=== PATIENT | female | born 1955 | race Caucasian/White ===

== ENCOUNTER 2020-10-01 15:51 | Emergency (ER) | payer MEDICARE, SELFPAY ==
--- NOTE | 2020-10-01 16:03 | ED.FEMALEGU ---
HPI - Female Genitourinary General Chief complaint: Urogenital-Female Stated complaint: Bloody urine Source: patient and RN notes reviewed Limitations: no limitations History of Present Illness HPI Narrative: The patient, previously mostly healthy non-smoker/nondrinker, presents with urinary symptoms. Patient states she has 1/2-week history of urinary frequency, urgency and dysuria for which she took Azo. Symptoms are mild, worse with micturition similar to prior UTI several years ago. No fever, vomiting/diarrhea, vaginal discharge, abdominal pain, back pain, appendectomy scar pain but she did see some blood. Patient is not vaccinated for Covid and had a Covid test in July at the time of polypectomy and appendectomy; no loss of taste/smell, S OB, cough, CP, nor rash. Related Data Allergies Allergy/AdvReac Type Severity Reaction Status Date / Time Penicillins Allergy Unknown unknown Verified 05/22/18 10:20 risedronate sodium Allergy Unknown Nausea Verified 05/22/18 10:20 sertraline Allergy Unknown drowsy, Verified 05/22/18 10:20 didn't help trazodone Allergy Unknown drowsiness, Verified 05/22/18 10:20 ineffective PROPOXYPHENE HCL Allergy Unknown NAUSEA AND Uncoded 08/17/10 14:03 VOMITING Review of Systems Review of Systems: Narrative: The patient has been informed that they may have pre-hypertension or Hypertension based on a BP reading in the department. I recommend that the patient call the primary care provider listed on their discharge instructions or a physician of their choice this week to arrange follow up for further evaluation of possible pre-hypertension or Hypertension General/Constitutional: No weight loss,fever Eyes: N0: Redness,discharge Ears/Nose/Throat: No: Epistaxis,ear discharge Respiratory: Denies: Hemoptysis Gastrointestinal: No Vomiting, Bleeding-rectal Skin: No Lumps, eruption Neurologic: No Focal Weakness,Sz Hematologic: Denies: Petechiae/Purpura Psychiatric: No: Suicida ideationl All Other Systems: Reviewed and Negative [facility] Surgical History Surgical History (Updated 08/21/20 @ 20:56 by Luiza Oreilly MD) History of appendectomy 08.16.2020 appendectomy 08.16.2020 path: cecal tubular adenoma Social History Social History Smoking status: Never smoker Alcohol intake: current Comments At time of signature, agree with nursing past medical, surgical, social and family history. There is no relevant family history pertinent to the presenting complaint Exam Narrative: Exam Narrative: General Appearance: Well appearing, No distress EYE: PERRLA, Conjunctiva clear Ears: External ear normal Nose: Normal nose Mouth/Throat: Normal appearing, Normal lips Neck: Supple Respiratory: Airway patent, No respiratory distress Cardiovascular: RRR Abdomen: Soft, Non-tender, Musculoskeletal: Full ROM Skin: Warm, Dry Neurological: A&O x3, CN II-X intact Psychiatric: Normal mood, Normal affect Course Vital Signs Vital signs: Vital Signs Temperature 97.3 F L 10/01/20 16:04 Pulse Rate 84 10/01/20 16:04 Respiratory Rate 16 10/01/20 16:04 Blood Pressure 148/88 H 10/01/20 16:04 Pulse Oximetry 98 10/01/20 16:04 Temperature 97.3 F L 10/01/20 16:04 Pulse Rate 84 10/01/20 16:04 Respiratory Rate 16 10/01/20 16:04 Blood Pressure 148/88 H 10/01/20 16:04 Pulse Oximetry 98 10/01/20 16:04 Discharge Plan Discharge Clinical Impression: Cystitis Patient Disposition: Home, Self-Care Condition: Stable Instructions: Antibiotic Form, Urinary Tract Infection in Women (ED) Prescriptions: New sulfamethoxazole-trimethoprim [Bactrim DS] 800-160 mg tablet 1 tablet PO Q12H Qty: 14 RF: 0 phenazopyridine [Pyridium] 100 mg tablet 100 mg PO DAILY PRN (Reason: pain) Qty: 6 RF: 0 No Action raloxifene 60 mg tablet 60 mg PO DAILY Qty: 90 RF: 3 Follow-up/Referrals: Luiza Oreilly MD [Primary Care Provid
[2020-10-01 16:04] VITALS: BP 148/88; PULSE 84; RESP 16; TEMP 36.3; O2SAT 98
== END 2020-10-01 16:22 | disposition home or self-care (01) ==
PROVIDERS: Emergency Provider Emergency Medicine; PCP Family Medicine
DX: N30.80 Other cystitis without hematuria (principal)
CPT/HCPCS: 81003; 87086; 87088; 99213; G0463

== ENCOUNTER → 2021-05-03 12:45 | Outpatient (CLI) | payer MEDICARE, SELFPAY ==
--- NOTE | ~2021-05-03 | DEXA_ITS ---
Bone Density Report Name: BRENDEN BILLINGS Age: 66 Sex: Female Ethnicity: White Date of : 1955 Indication: osteopenia; postmenopausal Referring Provider: Curtis Greenfield Study: Bone densitometry was performed. Exam Date: May 03, 2021 Accession number: [id number] Bone Density: Region BMD T-score Z-score Classification AP Spine (L1-L4) 0.773 -2.5 -0.7 Osteoporosis Femoral Neck (Left) 0.659 -1.7 -0.1 Osteopenia Total Hip (Left) 0.824 -1.0 0.3 Normal Femoral Neck (Right) 0.579 -2.4 -0.9 Osteopenia Total Hip (Right) 0.759 -1.5 -0.2 Osteopenia Total Hip Mean 0.792 -1.3 0.1 Osteopenia World Health Organization criteria for BMD impression classify patients as: Normal (T-score at or above -1.0), Osteopenia (T-score between -1.0 and -2.5), or Osteoporosis (T-score at or below -2.5). 10-year Fracture Risk: FRAX not reported because: Some T-score for Spine Total or Hip Total or Femoral Neck at or below -2.5 Previous Exams: Region Exam Age BMD T-score BMD Change BMD Change Date g/cm2 vs Baseline vs Previous AP Spine(L1-L4) 05/03/2021 66 0.773 -2.5 -0.016 -0.016 10/17/2017 62 0.789 -2.3 Total Hip(Left) 05/03/2021 66 0.824 -1.0 0.017 0.017 10/17/2017 62 0.807 -1.1 Total Hip(Right) 05/03/2021 66 0.759 -1.5 -0.001 -0.001 10/17/2017 62 0.759 -1.5 *Denotes significance at 95% confidence level, LSC for AP Spine = 0.022 g/cm2, LSC for Total Hip = 0.027 g/cm2 Clinical Information Provided by Patient: Has used the following medications: Evista (i.e. raloxifene), Vitamin D Patient maximum height was 64.5 Menopause Age: 50 Drinks caffeinated beverages Onset of menses at age 12 Number of children 2 Impression: The patient has osteoporosis, based on the Total Spine T-score. No significant bone loss was observed. Discussion: INCREASED RISK OF FRACTURE. BONE DENSITY IS UNDESIRABLY LOW AT ONE OR MORE SKELETAL SITES, CONSISTENT WITH POSTMENOPAUSAL OSTEOPOROSIS. This patient's lowest T-score meets the World Health Organization's (WHO) criteria for osteoporosis at one or more sites (T-score -2.5 or below). In untreated patients, the risk of osteoporotic fracture increases approximately two-fold for each 1.0 SD decrease in T-score. Low bone density is not the only risk factor for fracture; also consider factors such as patient's age, frailty or poor health, risk of falling, risk of injury,
== END ==
PROVIDERS: PCP Family Medicine; Visit Provider Physician Assistant Medical
DX: Z78.0 Asymptomatic menopausal state (principal); M81.0 Age-related osteoporosis without current pathological fracture; M85.852 Other specified disorders of bone density and structure, left thigh; M85.851 Other specified disorders of bone density and structure, right thigh
CPT/HCPCS: 77080

== ENCOUNTER 2022-08-13 09:57 | Emergency (ER) | payer MEDICARE, SELFPAY ==
--- NOTE | ~2022-08-13 | XR_ITS ---
XR chest 2V DATE: 08/13/2022 10:28 INDICATION: Cough for 2 weeks TECHNIQUE: 2 views COMPARISON: None FINDINGS: Normal heart size. Mild aortic unfolding. No hilar or mediastinal enlargement. No pulmonary infiltrate or consolidation, pleural effusion or pulmonary vascular congestion or pneumothorax. Osteopenia. IMPRESSION: No active cardiopulmonary disease Reviewed, dictated and finalized at location L.
[2022-08-13 10:09] VITALS: BP 144/84; PULSE 107; RESP 18; TEMP 35.9; O2SAT 99
--- NOTE | 2022-08-13 10:12 | ED.GENADULT ---
HPI - General Adult General Chief complaint: Back Pain/Injury Stated complaint: bilateral side and back pain Source: patient Mode of arrival: ambulatory Limitations: no limitations History of Present Illness HPI narrative: 67 y/o female presented for c/o cough for 2 weeks and bilateral lower rib pain since yesterday. States last night her ribs and mid back hurt, so she got no sleep. Reports decreased appetite and loose stools today. Called pcp yesterday and was prescribed zpack, which she has started. Also has been taking tessalon perles. Has taken one tylenol and applied icyhot. Denies sob, wheezing, lethargy/fatigue, fever or chills. Related Data Home Medications Medication Instructions Recorded Confirmed ferrous sulfate 325 mg (65 mg 325 mg PO DAILY 01/19/21 08/13/22 iron) tablet (iron) [id number]-[id number] acid 240 1 tablet PO DAILY 01/19/21 08/13/22 mcg-vit K 120 pyt-hdkusq-cpcj 293 tablet (Alive Women's 50 Plus (fruit-veg blend)) Allergies Allergy/AdvReac Type Severity Reaction Status Date / Time risedronate sodium AdvReac Intermediate Nausea Verified 08/13/22 10:16 Penicillins AdvReac Mild Hives Verified 08/13/22 10:16 sertraline AdvReac Unknown drowsy, Verified 08/13/22 09:59 didn't help trazodone AdvReac Unknown drowsiness, Verified 08/13/22 09:59 ineffective PROPOXYPHENE HCL AdvReac Intermediate NAUSEA AND Uncoded 08/13/22 10:16 VOMITING Review of Systems Review of Systems: CONSTITUTIONAL: Denies body aches, fever, chills, or sweats. EYES: Denies visual changes, redness, or discharge. ENT: Denies rhinorrhea, congestion, sore throat, or otalgia. CARDIOVASCULAR: Denies chest pain, palpitations, or edema. RESPIRATORY: Reports cough, denies sob, wheezing. GASTROINTESTINAL: Denies abdominal pain, vomiting, or diarrhea. GENITOURINARY: Denies dysuria or hematuria. SKIN: Denies rash, itching, or wounds. MUSCULOSKELETAL: Denies back pain, joint pain, or myalgia. NEUROLOGIC: Denies headache, numbness, tingling, or weakness. All systems reviewed & are unremarkable except as noted in HPI and below PMFSH Past Medical History Medical History (Updated 08/13/22 @ 10:40 by Kim Faust APRN) Age-related osteoporosis without current pathological fracture Surgical History Surgical History History of appendectomy 08.16.2020 appendectomy 08.16.2020 path: cecal tubular adenoma Social History Social History Smoking status: Never smoker Alcohol intake: current Comments At time of signature, I have reviewed and agree with nursing past medical, surgical, social and family history unless otherwise noted. Please see nursing chart for further information. There is no relevant family history pertinent to the presenting complaint Exam Narrative: GENERAL: mildly ill-appearing, in no acute distress. EYES: EOMI. No redness or drainage. Conjunctivae normal. ENT: Mucous membranes pink and moist. No rhinorrhea. NECK: Normal AROM. Supple. CHEST: No respiratory distress. LCTAB HEART: Regular rate and rhythm. No murmur appreciated. ABDOMEN: Soft, nontender, nondistended, normal active bowel sounds. MUSC: Normal range of motion. No edema. Nontender ribs/spine SKIN: Warm, dry, no rash. Capillary refill normal. Normal skin turgor. NEURO: Alert and oriented x3. Gait steady. PSYCH: Normal affect. Course Course Emergency Course: Patient is aware of diagnosis, understands and agrees to treatment plan. Anticipatory guidance given. Patient agrees to follow-up as directed and is aware of reasons to seek care at the emergency department. Portions of this record may have been created with voice recognition software Level of Care: Express Care Visit Vital Signs Vital signs: Vital Signs Temperature 96.6 F L 08/13/22 10:09 Pulse Rate 107 H 08/13/22 10:09 Respiratory Rate
[2022-08-13] MEDS: KETOROLAC (*BKC) 60 MG/2 ML VIAL IM (10:37)
== END 2022-08-13 10:46 | disposition home or self-care (01) ==
PROVIDERS: Emergency Provider Nurse Practitioner Family; PCP Family Medicine
DX: R07.81 Pleurodynia (principal)
CPT/HCPCS: 71046; 96372; 99213; G0463; J1885

== ENCOUNTER 2025-02-08 08:02 | Outpatient (CLI) | payer MEDICARE, SELFPAY ==
--- NOTE | ~2025-02-08 | DEXA_ITS ---
Bone Density Report Name: BRENDEN BILLINGS Age: 69 Sex: Female Ethnicity: White Date of : 1955 Indication: postmenopausal osteoporosis; monitoring treatment; cancer; Referring Provider: CEM LAY Study: Bone densitometry was performed. Exam Date: February 08, 2025 Accession number: [id number] Bone Density: Region BMD T-score Z-score Classification AP Spine(L1-L4) 0.762 -2.6 -0.5 Osteoporosis Femoral Neck (Left) 0.605 -2.2 -0.4 Osteopenia Total Hip (Left) 0.775 -1.4 0.1 Osteopenia Femoral Neck (Right) 0.575 -2.5 -0.7 Osteoporosis Total Hip (Right) 0.729 -1.7 -0.3 Osteopenia Total Hip Mean 0.752 -1.6 -0.1 Osteopenia World Health Organization criteria for BMD impression classify patients as: Normal (T-score at or above -1.0), Osteopenia (T-score between -1.0 and -2.5), or Osteoporosis (T-score at or below -2.5). 10-year Fracture Risk: FRAX not reported because: Some T-score for Spine Total or Hip Total or Femoral Neck at or below -2.5 Treated for osteoporosis Previous Exams: -- Region Exam Age BMD T-score BMD Change BMD Change Date g/cm2 vs Baseline vs Previous -- AP Spine (L1-L4) 02/08/2025 69 0.762 -2.6 -3.5%* -1.5% 05/03/2021 66 0.773 -2.5 -2.0% -2.0% 10/17/2017 62 0.789 -2.3 Total Hip(Left) 02/08/2025 69 0.775 -1.4 -4.0%* -6.0%* 05/03/2021 66 0.824 -1.0 2.1% 2.1% 10/17/2017 62 0.807 -1.1 Total Hip(Right) 02/08/2025 69 0.729 -1.7 -4.0%* -3.9%* 05/03/2021 66 0.759 -1.5 -0.1% -0.1% 10/17/2017 62 0.759 -1.5 -- *Denotes significance at 95% confidence level, LSC for AP Spine = 0.022 g/cm2, LSC for Total Hip = 0.027 g/cm2 Clinical Information Provided by Patient: Is being treated for osteoporosis Has used the following medications: Evista (i.e. raloxifene) Has the following medical conditions: Cancer Patient maximum height was 65 Menopause Age: 50 Drinks caffeinated beverages Onset of menses at age 12 Number of children 2 Impression: The patient has osteoporosis, based on the Total Spine T-score. The BMD for the Total Hip(Left) decreased, changing by -6.0% since the last DXA exam. The BMD for the Total Hip(Right) decreased, changing by -3.9% since the last DXA exam. Discussion: SIGNIFICANT BONE LOSS OBSERVED. Adherence to therapy (including calcium and vitamin D intake) should be assessed. If compliance is not a factor, review management and exclusion of secondary causes of bone loss. It is important to ask patients whether they are taking their medications and to encourage continued and appropriate compliance with their osteoporosis therapies to reduce fracture risk. It is also important to review their risk factors and encourage appropriate calcium and vitamin D intakes, exercise, fall prevention and other lifestyle measures. Follow-Up: Consider a repeat BMD and Vertebral Fracture Assessment (VFA) exam in 2 years or sooner if medically necessary, to reassess this patient's status. Reported by: CALOS on 02/08/2025 8:49:00 AM. Reviewed, dictated and finalized at location A.
== END 2025-02-08 08:03 | disposition home or self-care (01) ==
PROVIDERS: PCP Nurse Practitioner Family; Visit Provider Nurse Practitioner Family
DX: M81.0 Age-related osteoporosis without current pathological fracture (principal); M85.89 Other specified disorders of bone density and structure, multiple sites; Z78.0 Asymptomatic menopausal state
CPT/HCPCS: 77080